=== PATIENT | male | born 1980 | race Caucasian/White ===

== ENCOUNTER 2021-05-21 20:17 | Emergency (ER) | payer OTHER ==
[2021-05-21] MEDS ORDERED: NAPROXEN500 MG PO (21:08)
[2021-07-17] MEDS ORDERED: FLAGYL500 MG PO (17:00)
[2021-07-17] MEDS ORDERED: TERBINAFINE HC250 MG PO (17:01)
[2021-07-17] MEDS ORDERED: BUMETANIDE1 MG PO (17:03)
[2021-07-17] MEDS ORDERED: RYTHMOL SR 225225 MG PO (17:03)
[2021-07-17] MEDS ORDERED: VICTOZA 3-0.6 MG/0.1 SQ (17:04)
[2021-07-17] MEDS ORDERED: SPIRONOLACTONE25 MG PO (17:04)
[2021-07-17] MEDS ORDERED: ELIQUIS5 MG PO (17:05)
[2021-07-17] MEDS ORDERED: ENTRESTO 24 MG1 EACH PO (17:05)
[2021-07-18] MEDS ORDERED: HYDROCODON-ACE1 EAC2 PO (10:19)
[2021-07-18] MEDS ORDERED: COLACE100 MG PO (10:19)
== END 2021-05-21 21:27 | disposition home or self-care (01) ==
LOC: ER1 20:17
DX: M25.562 Pain in left knee (principal); I48.91 Unspecified atrial fibrillation; I50.9 Heart failure, unspecified; Z88.1 Allergy status to other antibiotic agents
CPT/HCPCS: 73564; 99283

== ENCOUNTER → 2021-07-03 | Outpatient (CLI) | payer OTHER ==
[~2021-07-03] MED LIST: BUMETANIDE1 MG PO; COLACE100 MG PO; ELIQUIS5 MG PO; ENTRESTO 24 MG1 EACH PO; FLAGYL500 MG PO; HYDROCODON-ACE1 EAC2 PO; NAPROXEN500 MG PO; RYTHMOL SR 225225 MG PO; SPIRONOLACTONE25 MG PO; TERBINAFINE HC250 MG PO; VICTOZA 3-0.6 MG/0.1 SQ
== END ==
LOC: NM 13:00
DX: R10.811 Right upper quadrant abdominal tenderness (principal)
CPT/HCPCS: 78227; A9537; J2785; J2805

== ENCOUNTER → 2021-07-18 | Day surgery (SDC) | payer OTHER ==
[2021-07-18 07:05] LABS: BUN/CREATININE RATIO 11 (0-10)
== END | disposition home or self-care (01) ==
LOC: OR 05:47
PROVIDERS: Surgery
DX: K81.1 Chronic cholecystitis (principal); K76.89 Other specified diseases of liver; I50.9 Heart failure, unspecified; J45.909 Unspecified asthma, uncomplicated; G47.30 Sleep apnea, unspecified; E11.9 Type 2 diabetes mellitus without complications; Z88.1 Allergy status to other antibiotic agents; Z79.01 Long term (current) use of anticoagulants; Z79.84 Long term (current) use of oral hypoglycemic drugs; Z79.899 Other long term (current) drug therapy
CPT/HCPCS: 36415; 80048; 82962; 93005; J0690; J1100; J1170; J2250; J2405; J2704; J2710; J3010; J7030; J7120

== ENCOUNTER → 2021-10-23 | Outpatient (CLI) | payer OTHER ==
[~2021-10-23] MED LIST changes: +FARXIGA10 MG PO
== END ==
LOC: OPSV2 08:00
DX: Z01.818 Encounter for other preprocedural examination (principal)
CPT/HCPCS: 36415; 83036; 85610; 85730; 93005

== ENCOUNTER → 2021-11-01 | Day surgery (SDC) | payer OTHER | END | disposition home or self-care (01) | LOC: OR 07:30 | DX: S93.491A Sprain of other ligament of right ankle, initial encounter (principal); S82.831K Other fracture of upper and lower end of right fibula, subsequent encounter for closed fracture with nonunion; S86.311A Strain of muscle(s) and tendon(s) of peroneal muscle group at lower leg level, right leg, initial encounter; M65.9 Synovitis and tenosynovitis, unspecified; M83.9 Adult osteomalacia, unspecified; I48.91 Unspecified atrial fibrillation; I42.9 Cardiomyopathy, unspecified; I50.9 Heart failure, unspecified; J45.909 Unspecified asthma, uncomplicated; Z88.1 Allergy status to other antibiotic agents; Z20.822 Contact with and (suspected) exposure to COVID-19; Z95.0 Presence of cardiac pacemaker; X58.XXXA Exposure to other specified factors, initial encounter | CPT/HCPCS: 82962; C1713; J0690; J1100; J1885; J2001; J2250; J2405; J2704; J2795; J3010; J3370; J7030; J7120; Q4133 ==